=== PATIENT | male | born 1960 | race Asian ===

== ENCOUNTER → 2019-05-31 10:33 | Outpatient (CLI) | payer BC, OTHER, SELFPAY ==
[2019-05-31 11:13] LABS: Add Manual Diff / Slide Review NO; Basophils Absolute Auto 0 /uL (0-100); Basophils Percent Auto 0.4 % (0-2); Eosinophils Absolute Auto 100 /uL (0-450); Eosinophils Percent Auto 1.3 % (2-4); Hematocrit 45.7 % (41-53); Hemoglobin 15.4 g/dL (13.5-17.5); Lymphocytes Absolute Auto 1300 /uL (1100-4500); Lymphocytes Percent Auto 28.6 % (25-40); Mean Corpuscular HGB Conc 33.7 % (30-36); Mean Corpuscular Hemoglobin 32.3 PG (26-34); Mean Corpuscular Volume 95.9 fL (80-100); Monocytes Absolute Auto 400 /uL (0-900); Monocytes Percent Auto 9.4 % (3-14); Neutrophils Absolute Auto 2700 /uL (1500-7000); Neutrophils Percent Auto 60.3 % (50-75); Platelet Count 232 X10^3/uL (150-400); Red Blood Cell Count 4.77 X10^6/uL (4.5-5.9); Red Cell Distribution Width 12.4 % (11.6-14.8); White Blood Cell Count 4.5 X10^3/uL (4.5-11.0)
[2019-05-31 11:25] LABS: Alanine Aminotransferase 45 IU/L (21-72); Albumin 4.7 g/dL (3.5-5.0); Albumin Globulin Ratio 1.5 (1.0-2.8); Alkaline Phosphatase 60 U/L (38-126); Aspartate Aminotransferase 43 IU/L (17-59); Bilirubin Total 1.8 mg/dL (0.2-1.3); Blood Urea Nitrogen 19 mg/dL (9-20); Calcium 9.6 mg/dL (8.4-10.2); Carbon Dioxide 27 mmol/L (22-32); Chloride 100 mmol/L (98-107); Cholesterol 167 mg/dL (140-199); Estimated Glomerular Filt Rate > 60.0 mL/min (>60); Globulin 3.1 g/dL (1.7-4.1); Glucose 100 mg/dL (80-110); HDL Cholesterol 56 mg/dL (40-60); HEMOLYSIS < 15 (0-50); LDL Cholesterol Calculated 96 mg/dL (<100); Potassium 4.6 mmol/L (3.4-5.1); Sodium 139 mmol/L (137-145); Total Protein 7.8 g/dL (6.3-8.2); Triglycerides 76 mg/dL (35-150)
[2019-05-31 11:56] LABS: Prostate Specific Antigen Scrn 1.21 ng/mL (0.1-4.0)
== END ==
PROVIDERS: PCP Hospitalist; Visit Provider Hospitalist
DX: E78.00 Pure hypercholesterolemia, unspecified (principal); M54.9 Dorsalgia, unspecified
CPT/HCPCS: 36415; 80053; 80061; 85025; G0103

== ENCOUNTER 2019-07-24 11:50 | Day surgery (SDC) | payer BC, OTHER, SELFPAY ==
--- NOTE | 2019-07-24 | PATH_ITS ---
[facility] Accession Number: [id number] . 01 Material submitted: . colon - COLON POLYP AT 70 CM . 01 Clinical history: . SCREENING COLONOSCOPY . 02 Diagnosis: Colon, Polyp at 70 cm, Biopsy: Tubular adenoma. MRV 07/25/2019 1005 Local . 02 Electronically signed: . Bree Santana MD, Pathologist NPI- [id number] . 01 Gross description: . COLON POLYP AT 70 CM: Received in formalin is 1 fragment(s) of tao, soft tissue measuring 0.3 x 0.2 x 0.2 cm which is entirely submitted and submitted entirely in 1 cassette(s) /[facility] 07/24/2019 1949 Local . 02 Pathologist provided ICD-10: D12.6 . 02 CPT . 818958 Performed at: 01 [facility] [address] [id number] MD Josh Dodd MD Phone: [phone] Performed at: 02 [facility] [address] [place], [place] [id number] MD Bree Santana MD Phone: [phone]
[2019-07-24 12:08] VITALS: BP 141/88; PULSE 63; RESP 16; TEMP 36.4; O2SAT 99
--- NOTE | 2019-07-24 12:55 | PM.HP.1 ---
History of Present Illness History of Present Illness Date Patient Seen: 07/24/19 Time Patient Seen: 12:56 Chief complaint: [id number] SCREENING COLONOSCOPY Narrative: This is a 59 yo man with history of screening colonoscopy one year ago which was normal. He returns today for his interval screening. He denies rectal bleeding, melena, abdominal pain, constipation or diarrhea. Patient History Medical History Back pain (Chronic ~2009) Chicken pox (Resolved) Hyperlipidemia (Acute) Surgical History Anesthesia (Inactive) Cervical vertebral fusion (Acute ~1983) H/O arthroscopy of knee (Acute) H/O arthroscopy of shoulder (Acute ~2016) Family History (Updated 07/10/19 @ 20:47 by Misa Nair) Father Diabetes mellitus Mother Hypertension Hyperlipidemia Sister Diabetes mellitus Social History household members: spouse Smoking Status: Never smoker Family & Social History Family History Father Diabetes mellitus Mother Hypertension Hyperlipidemia Sister Diabetes mellitus Social History: household members spouse Tobacco & Substance use: Smoking Status Never smoker Meds Home Medications and Allergies Home Medications Medication Instructions Recorded Confirmed Type scopolamine base [Transderm-Scop] 1 patch TD Q72H #10 patch 10/31/17 05/31/19 Rx simvastatin 40 mg tablet 40 mg PO HS #30 tab 06/01/19 07/24/19 Rx Allergies Allergy/AdvReac Type Severity Reaction Status Date / Time No Known Drug Allergies Allergy Verified 05/31/19 09:54 Review of Systems Review of Systems ROS Unobtainable: All systems reviewed & are unremarkable except as noted in HPI and below Exam Vital Signs (past 8 hours): - 07/24/19 12:08 Temperature 97.5 F L Pulse Rate 63 Respiratory Rate 16 Blood Pressure 141/88 H Pulse Oximetry 99 Oxygen Delivery Method Room Air Narrative Exam Narrative: alert, oriented, comfortable normal respirations NSR abdomen soft, nontender, nondistended no LE edema Assessment & Plan Assessment and plan (1) Colon cancer screening: Current visit: Yes Status: Acute Assessment & Plan narrative: Risks and benefits of screening colonoscopy discussed. Risks of bleeding, infection, perforation, need for additional procedures were discussed. The patient desires to proceed. Plan: Proceed with screening colonoscopy Time Spent With Patient Time with patient: 15-24 minutes
--- NOTE | 2019-07-24 13:34 | PM.OP.ENDO ---
Operative Date/Time/Diagnoses Date of procedure: 07/24/19 Time of procedure: 13:35 Pre-op diagnosis: Average risk for colon cancer Post-op diagnosis: other (Polyp found and removed at 70cm) Procedure & Clinicians Study performed: Colonoscopy with cold forecps polypectomy Same procedure as scheduled: Yes (with polypectomy) Indications: Ten year colon cancer screening Surgeon: Farida Yan Procedure Notes SCOAP/Timeout: Performed Procedure in detail: The patient is brought to the room the patient placed in left lateral decubitus position and time-out was performed. Sedation was begun with 4 mg of Versed and 100 mg of fentanyl. Rectal exam was performed which was normal. The scope was then introduced into the anal opening and progressed to the cecum in the usual fashion. The cecum was identified by the ileocecal valve and cecal try fold. The scope was then withdrawn in a rotary fashion with careful examination of all folds of the colonic mucosa. A 2 mm polyp was found as a mucosal fold at 70 cm. This was removed entirely with cold forceps. Hemostasis was good. The polyp was sent for pathology. The remaining withdrawal of the colonoscope was completed viewing all colonic mucosal folds without any further abnormalities noted. Retroflex was done in the rectum and no significant hemorrhoid disease was appreciated. The colonoscope was then withdrawn from the rectum and the patient was transferred to recovery in stable condition. Scope withdrawal time: 8 minutes Sedation minutes: 20 Findings: polyp Specimen(s): other (2 mm polyp removed by cold forceps at 70 cm) Complications: none Post-procedure Recommendations: Colonscopy in 10 years (Unless pathology is neoplastic, then 5 years) Follow up: as needed Disposition: PACU
[2019-07-24] MEDS: MIDAZOLAM 5 MG/5 ML VIAL IV (13:36)
[2019-07-24] MEDS: fentaNYL 250 MCG/5 ML INJ IV (13:36)
[2019-07-24] MEDS: ONDANSETRON 4 MG/2 ML INJ IV (13:37)
[2019-07-24 13:41] VITALS: BP 109/68; PULSE 56; RESP 11; TEMP 36.4; O2SAT 97
[2019-07-24 13:46] VITALS: BP 125/79; PULSE 58; RESP 18; O2SAT 97
[2019-07-24 13:51] VITALS: BP 123/70; PULSE 55; RESP 16; O2SAT 96
[2019-07-24 13:56] VITALS: BP 126/78; PULSE 53; RESP 18; O2SAT 96
--- NOTE | 2019-07-24 14:12 | SUR.PHASEI ---
1341 To pacu awake and talking, oriented. HOB elevated, juice given. 1356 VSS, preparing to transfer to [facility].
--- NOTE | 2019-07-24 14:14 | SUR.PHASEII ---
1358 late entry To [facility], to bedside. A&O, no pain, belly soft. Report to Rossi Lara RN
== END 2019-07-24 14:20 | disposition home or self-care (01) ==
PROVIDERS: Family Provider Hospitalist; PCP Hospitalist; Visit Provider Surgery
PROC: 0DJD8ZZ Inspection of Lower Intestinal Tract, Via Natural or Artificial Opening Endoscopic (ICD-10-PCS; CPT 45378; principal; 2019-07-24 13:00)
DX: Z12.11 Encounter for screening for malignant neoplasm of colon (principal)
CPT/HCPCS: 45380; 99152; J2250; J2405; J3010

== ENCOUNTER → 2020-06-11 10:19 | Outpatient (CLI) | payer BC, OTHER, SELFPAY ==
[2020-06-11 11:26] LABS: Add Manual Diff / Slide Review NO; BUN Creatinine Ratio 15.4 (6-22); Basophils Absolute Auto 0 /uL (0-100); Basophils Percent Auto 0.5 % (0-2); Blood Urea Nitrogen 16 mg/dL (9-20); Calcium 9.3 mg/dL (8.4-10.2); Carbon Dioxide 30 mmol/L (22-32); Chloride 104 mmol/L (98-107); Cholesterol 138 mg/dL (140-199); Eosinophils Absolute Auto 100 /uL (0-450); Eosinophils Percent Auto 1.3 % (2-4); Estimated Glomerular Filt Rate > 60.0 mL/min (>60); Glucose 103 mg/dL (80-110); HDL Cholesterol 46 mg/dL (40-60); HEMOLYSIS < 15 (0-50); Hematocrit 43.5 % (41-53); Hemoglobin 14.7 g/dL (13.5-17.5); LDL Cholesterol Calculated 75 mg/dL (<100); Lymphocytes Absolute Auto 1500 /uL (1100-4500); Mean Corpuscular HGB Conc 33.8 % (30-36); Mean Corpuscular Hemoglobin 32.5 PG (26-34); Mean Corpuscular Volume 96.1 fL (80-100); Monocytes Absolute Auto 400 /uL (0-900); Monocytes Percent Auto 6.7 % (3-14); Neutrophils Absolute Auto 3500 /uL (1500-7000); Neutrophils Percent Auto 64.5 % (50-75); Platelet Count 217 X10^3/uL (150-400); Potassium 4.6 mmol/L (3.4-5.1); Red Blood Cell Count 4.53 X10^6/uL (4.5-5.9); Red Cell Distribution Width 12.8 % (11.6-14.8); Sodium 138 mmol/L (137-145); Triglycerides 83 mg/dL (35-150); White Blood Cell Count 5.4 X10^3/uL (4.5-11.0)
[2020-06-11 11:53] LABS: Prostate Specific Antigen Scrn 1.56 ng/mL (0.1-4.0)
[2020-06-11 12:12] LABS: Vitamin D 25 Hydroxy (D3) 27.5 ng/mL (30.0-100.0)
== END ==
PROVIDERS: PCP Family Medicine; Referring Provider Family Medicine; Visit Provider Family Medicine
DX: E55.9 Vitamin D deficiency, unspecified (principal); E78.5 Hyperlipidemia, unspecified; Z12.5 Encounter for screening for malignant neoplasm of prostate
CPT/HCPCS: 36415; 80048; 80061; 82306; 85025; G0103

== ENCOUNTER → 2021-09-22 09:37 | Outpatient (CLI) | payer BC, OTHER, SELFPAY ==
[2021-09-22 10:35] LABS: Add Manual Diff / Slide Review NO; Basophils Absolute Auto 0 /uL (0-100); Basophils Percent Auto 0.8 % (0-2); Eosinophils Absolute Auto 100 /uL (0-450); Eosinophils Percent Auto 1.3 % (2-4); Hematocrit 45.4 % (41-53); Hemoglobin 15.4 g/dL (13.5-17.5); Lymphocytes Absolute Auto 1300 /uL (1100-4500); Lymphocytes Percent Auto 28.4 % (25-40); Mean Corpuscular Hemoglobin 32.2 PG (26-34); Monocytes Absolute Auto 300 /uL (0-900); Neutrophils Absolute Auto 2900 /uL (1500-7000); Neutrophils Percent Auto 62.5 % (50-75); Platelet Count 216 X10^3/uL (150-400); Red Blood Cell Count 4.79 X10^6/uL (4.5-5.9); Red Cell Distribution Width 12.8 % (11.6-14.8); White Blood Cell Count 4.7 X10^3/uL (4.5-11.0)
[2021-09-22 10:52] LABS: Blood Urea Nitrogen 16 mg/dL (9-20); Calcium 9.6 mg/dL (8.4-10.2); Carbon Dioxide 30 mmol/L (22-32); Chloride 101 mmol/L (98-107); Cholesterol 177 mg/dL (140-199); Estimated Glomerular Filt Rate > 60.0 mL/min (>60); Glucose 109 mg/dL (80-110); HDL Cholesterol 57 mg/dL (40-60); HEMOLYSIS < 15 (0-50); LDL Cholesterol Calculated 97 mg/dL (<100); Potassium 4.5 mmol/L (3.4-5.1); Sodium 138 mmol/L (137-145); Triglycerides 116 mg/dL (35-150)
[2021-09-22 10:57] LABS: Vitamin D 25 Hydroxy (D3) 22.6 ng/mL (30.0-100.0)
[2021-09-22 11:11] LABS: Prostate Specific Antigen Scrn 2.15 ng/mL (0.1-4.0)
== END ==
PROVIDERS: PCP Family Medicine; Referring Provider Family Medicine; Visit Provider Family Medicine
DX: E55.9 Vitamin D deficiency, unspecified (principal); E78.2 Mixed hyperlipidemia; Z12.5 Encounter for screening for malignant neoplasm of prostate
CPT/HCPCS: 36415; 80048; 80061; 82306; 85025; G0103

== ENCOUNTER → 2023-03-11 07:43 | Outpatient (CLI) | payer BC, OTHER, SELFPAY ==
[2023-03-11 08:26] LABS: Add Manual Diff / Slide Review NO; Basophils Absolute Auto 0 /uL (0-100); Basophils Percent Auto 0.6 % (0-2); Eosinophils Absolute Auto 100 /uL (0-450); Eosinophils Percent Auto 2.2 % (2-4); Hematocrit 42.2 % (41-53); Hemoglobin 14.6 g/dL (13.5-17.5); Lymphocytes Absolute Auto 1300 /uL (1100-4500); Mean Corpuscular HGB Conc 34.5 % (30-36); Mean Corpuscular Hemoglobin 32.5 PG (26-34); Mean Corpuscular Volume 94.1 fL (80-100); Monocytes Absolute Auto 300 /uL (0-900); Neutrophils Absolute Auto 3100 /uL (1500-7000); Neutrophils Percent Auto 64.2 % (50-75); Platelet Count 228 X10^3/uL (150-400); Red Blood Cell Count 4.49 X10^6/uL (4.5-5.9); Red Cell Distribution Width 12.5 % (11.6-14.8); White Blood Cell Count 4.9 X10^3/uL (4.5-11.0)
[2023-03-11 08:48] LABS: Alanine Aminotransferase 45 IU/L (<50); Albumin 4.2 g/dL (3.5-5.0); Albumin Globulin Ratio 1.5 (1.0-2.8); Alkaline Phosphatase 67 U/L (38-126); Aspartate Aminotransferase 35 IU/L (17-59); BUN Creatinine Ratio 18.1 (6-22); Blood Urea Nitrogen 17 mg/dL (9-20); Calcium 8.8 mg/dL (8.4-10.2); Carbon Dioxide 28 mmol/L (22-32); Chloride 103 mmol/L (98-107); Cholesterol 159 mg/dL (140-199); Estimated Glomerular Filt Rate > 60 mL/min (>60); Globulin 2.8 g/dL (1.7-4.1); Glucose 113 mg/dL (80-110); HDL Cholesterol 52 mg/dL (40-60); HEMOLYSIS < 15 (0-50); LDL Cholesterol Calculated 90 mg/dL (<100); Potassium 4.3 mmol/L (3.4-5.1); Sodium 137 mmol/L (137-145); Triglycerides 83 mg/dL (35-150)
[2023-03-11 08:59] LABS: Vitamin D 25 Hydroxy (D3) 29.5 ng/mL (30.0-100.0)
== END ==
PROVIDERS: PCP Family Medicine; Referring Provider Family Medicine; Visit Provider Family Medicine
DX: E55.9 Vitamin D deficiency, unspecified (principal); E78.2 Mixed hyperlipidemia
CPT/HCPCS: 36415; 80053; 80061; 82306; 85025

== ENCOUNTER → 2023-03-16 10:46 | Outpatient (CLI) | payer BC, OTHER, SELFPAY ==
--- NOTE | 2023-03-16 10:47 | DI.RAD.S_ITS ---
PROCEDURE: XR CERVICAL SPINE 2V OR 3V INDICATIONS: pain TECHNIQUE: 3 view(s) of the cervical spine were acquired. COMPARISON: None. FINDINGS: Bones: [id number]-[id number] degenerative changes with disc space height loss, arthropathy, and osteophytes. Vertebral body heights are well maintained. No traumatic subluxation. There is straightening of normal cervical lordosis. Posterior fusion wires are seen at C1-C2. Soft tissues: No pathologic prevertebral soft tissue swelling. IMPRESSION: No acute radiographic abnormality. [id number] degenerative changes. If there is high concern for further derangement, consider MRI evaluation. Dictated by: Nick Callaway M.D. on 03/16/2023 at 14:54 Approved by: Nick Callaway M.D. on 03/16/2023 at 14:55
== END ==
PROVIDERS: PCP Family Medicine; Referring Provider Family Medicine; Visit Provider Family Medicine
DX: M54.2 Cervicalgia (principal)
CPT/HCPCS: 72040

== ENCOUNTER 2023-09-18 15:14 | Emergency (ER) | payer BC, OTHER, SELFPAY ==
[2023-09-18 15:32] VITALS: BP 134/78; PULSE 72; RESP 22; TEMP 36.8; O2SAT 97; BMI 30.2
[2023-09-18] MEDS: TET,DIPH,PERTUSS(ACELL),VAC/PF 0.5 ML SYRINGE IM (16:05)
[2023-09-18] MEDS: LIDOCAINE 1% W/EPI 1 ML SUBCUT (16:06)
--- NOTE | 2023-09-18 19:33 | ED.WOUNDLAC ---
HPI - Wound/Laceration <Gloria Savage PA-C - Last Filed: 09/18/23 19:39> General Chief Complaint: Wound/Laceration Stated Complaint: lt index finger lac Time Seen by Provider: 09/18/23 15:51 Source: patient Mode of arrival: Ambulatory History of Present Illness HPI narrative: 63-year-old male with no significant health history, presents for evaluation of laceration to the left index finger. He was cutting the head off of a fish few hours ago when the knife slipped and sliced into the the soft tissue of his lateral index finger between the MCP and the PIP. It has bled significantly and continues to ooze blood but not spurt. He denies any numbness tingling or loss of strength or sensation in that finger. Also notes a mild abrasion to the dorsal thumb as part of the knife injury. He has no other complaints. Related Data Previous Rx's Medication Instructions Recorded scopolamine base 1 mg over 3 days 1 patch topical Q72H #10 patches 05/20/23 transdermal patch (Transderm-Scop) simvastatin 40 mg tablet 40 mg PO DAILY #90 tabs 05/30/23 Allergies Allergy/AdvReac Type Severity Reaction Status Date / Time No Known Drug Allergies Allergy Verified 05/20/23 09:22 Review of Systems <Gloria Savage PA-C - Last Filed: 09/18/23 19:39> Review of Systems ROS Unobtainable: Unobtainable due to mental status/LOC Patient History <Gloria Savage PA-C - Last Filed: 09/18/23 19:39> Medical History History of motion sickness Upper extremity somatic dysfunction Finger pain, right Acute neck pain Plantar fasciitis of left foot Chronic low back pain without sciatica Cutaneous skin tags Bilateral leg cramps Chronic right hip pain Vitamin D deficiency Colon cancer screening Chicken pox Hyperlipidemia Back pain (~2009) Surgical History (Updated 03/16/23 @ 10:20 by Suresh Fishman DO) S/P cervical spinal fusion Anesthesia H/O arthroscopy of shoulder (~2016) H/O arthroscopy of knee Cervical vertebral fusion (~1983) Family History (Updated 04/03/20 @ 09:15 by Suresh Fishman DO) Father Diabetes mellitus Mother Hypertension Hyperlipidemia Sister Diabetes mellitus Social History household members: spouse Smoking Status: Never smoker Smoking Status: Never smoker alcohol intake frequency: holidays/special occasions only Substance Use Type: does not use Exam <Gloria Savage PA-C - Last Filed: 09/18/23 19:39> Initial Vital Signs Initial Vital Signs: Vital Signs Temperature 98.2 F 09/18/23 15:32 Pulse Rate 72 09/18/23 15:32 Respiratory Rate 22 09/18/23 15:32 Blood Pressure 134/78 09/18/23 15:32 Pulse Oximetry 97 09/18/23 15:32 Oxygen Delivery Method Room Air 09/18/23 15:32 <Cele Casas MD - Last Filed: 09/20/23 19:44> Initial Vital Signs Initial Vital Signs: Vital Signs Temperature 98.2 F 09/18/23 15:32 Pulse Rate 72 09/18/23 15:32 Respiratory Rate 22 09/18/23 15:32 Blood Pressure 134/78 09/18/23 15:32 Pulse Oximetry 97 09/18/23 15:32 Oxygen Delivery Method Room Air 09/18/23 15:32 Procedures <Gloria Savage PA-C - Last Filed: 09/18/23 19:39> Laceration Repair Laceration 1: Site: hand (L index finger) Side (If applicable): left Size (cm): 2 Description: linear Depth: simple, single layer Local Anesthetic: lidocaine 1% and with epi Amount of anesthesia used (mL): 3 Pre-repair: wound explored and cleansed with chlorhexadine Skin layer closed with: nylon Skin layer suture size: 5-0 Number of sutures: 3 Technique: simple, interrupted Course <Gloria Savage PA-C - Last Filed: 09/18/23 19:39> Orders Ordered: Discontinued Medications Diphtheria/Tetanus/Acell Pertussis (Tet,Diph,Pertuss(Acell),Vac/Pf 0.5 Ml Syringe) 0.5 ml IM .ONCE ONE Stop: 09/18/23 16:01 Last Admin: 09/18/23 16:05 Dose: 0.5 ml Documented By: MARIANA Lidocaine/Epinephrine (Lidocaine 1% W/Epi) 1 ml SUBCUT NOW ONE Stop: 09/18/23 15:40 Last Admin: 09/18/23 16:06 Dose: 1 ml Documented By: MARIANA Vital Signs Vital signs: Vital Signs - 8 hr 09/18/23 15:32 Temperature 98.2 F Pulse Rate 72 Respiratory Rate 22 Blood Pressure 134/78 Pulse Oximetry 97 Oxygen Delivery Method Room Air <Cele Casas MD - Last Filed: 09/20/23 19:44> Orders Ordered: Discontinued Medications Diphtheria/Tetanus/Acell Pertussis (Tet,Diph,Pertuss(Acell),Vac/Pf 0.5 Ml Syringe) 0.5 ml IM .ONCE ONE Stop: 09/18/23 16:01 Last Admin: 09/18/23 16:05 Dose: 0.5 ml Documented By: ES Lidocaine/Epinephrine (Lidocaine 1% W/Epi) 1 ml SUBCUT NOW ONE Stop: 09/18/23 15:40 Last Admin: 09/18/23 16:06 Dose: 1 ml Documented By: MARIANA Vital Signs Vital signs: Vital Signs - 8 hr 09/18/23 15:32 Temperature 98.2 F Pulse Rate 72 Respiratory Rate 22 Blood Pressure 134/78 Pulse Oximetry 97 Oxygen Delivery Method Room Air MDM - Wound/Laceration <Gloria Savage PA-C - Last Filed: 09/18/23 19:39> MDM Narrative Medical decision making narrative: Simple shallow laceration to the left index finger in the soft tissue with exploration negative for deeper muscle or tendon involvement. This patient was discussed with . Discharge Plan Departure Patient Disposition: Home Clinical Impression: Laceration of finger of left hand Qualifiers: Encounter type: initial encounter Instructions: How to Care for a Laceration After Repair, DI for Laceration Repair Activity Restrictions/Additional Instructions: Your laceration was superficial into the pad of your finger which was a good place to cut yourself. Keep that finger dry for at least the next 3 days. Your tetanus was updated today. Sutures out in 7-10 days either with your doctor or at the walk-in clinic here. Keep the finger elevated to reduce pain. Keep that splint on for at least 3 days and then as needed for comfort. He do not want you to bend the finger too much which might slow healing process. You can take Tylenol for pain up to 3 g per day. Return for any signs of infections such as drainage from the wound, increased swelling and pain, or fever. Good luck with the fishing and it was a pleasure to take care of you. Prescriptions: No Action simvastatin 40 mg tablet 40 mg PO DAILY MDD 40 mg Qty: 90 2RF Rx Instructions: Take one tablet by mouth daily at bedtime scopolamine base [Transderm-Scop] 1 mg over 3 days patch 3 day 1 patch topical Q72H Qty: 10 3RF Referrals: Suresh Fishman DO [Primary Care Provider] - Stand Alone Forms: Patient Portal/API ED Sign-out <Cele Casas MD - Last Filed: 09/20/23 19:44> Cosign ED Attending Cosignature Attestation: I was immediately available in the department for consultation throughout this patient's visit. Cele Casas MD
== END 2023-09-18 16:36 | disposition home or self-care (01) ==
PROVIDERS: Emergency Provider Physician Assistant; PCP Family Medicine
DX: S61.211A Laceration without foreign body of left index finger without damage to nail, initial encounter (principal); W26.0XXA Contact with knife, initial encounter; Z23 Encounter for immunization
CPT/HCPCS: 12001; 90471; 99283; 90715

== ENCOUNTER → 2024-05-18 09:07 | Outpatient (CLI) | payer MEDICARE, BC, OTHER, SELFPAY ==
[2024-05-18 10:16] LABS: Add Manual Diff / Slide Review NO; Basophils Absolute Auto 0 /uL (0-100); Basophils Percent Auto 0.6 % (0-2); Eosinophils Absolute Auto 100 /uL (0-450); Eosinophils Percent Auto 1.9 % (2-4); Hematocrit 43.7 % (41-53); Hemoglobin 14.9 g/dL (13.5-17.5); Lymphocytes Absolute Auto 1300 /uL (1100-4500); Lymphocytes Percent Auto 25.4 % (25-40); Mean Corpuscular HGB Conc 34.1 % (30-36); Mean Corpuscular Hemoglobin 32.7 PG (26-34); Mean Corpuscular Volume 95.9 fL (80-100); Monocytes Absolute Auto 400 /uL (0-900); Monocytes Percent Auto 7.3 % (3-14); Neutrophils Absolute Auto 3300 /uL (1500-7000); Neutrophils Percent Auto 64.8 % (50-75); Platelet Count 233 X10^3/uL (150-400); Red Blood Cell Count 4.56 X10^6/uL (4.5-5.9); Red Cell Distribution Width 12.5 % (11.6-14.8); White Blood Cell Count 5.1 X10^3/uL (4.5-11.0)
[2024-05-18 10:53] LABS: Vitamin D 25 Hydroxy (D3) 36.4 ng/mL (30.0-100.0)
[2024-05-18 12:12] LABS: Alanine Aminotransferase 35 IU/L (<50); Albumin 4.4 g/dL (3.5-5.0); Albumin Globulin Ratio 1.6 (1.0-2.8); Alkaline Phosphatase 64 U/L (38-126); Aspartate Aminotransferase 38 IU/L (17-59); BUN Creatinine Ratio 17.3 (6-22); Bilirubin Total 1.2 mg/dL (0.2-1.3); Blood Urea Nitrogen 17 mg/dL (9-20); Calcium 8.8 mg/dL (8.4-10.2); Carbon Dioxide 24 mmol/L (22-32); Chloride 105 mmol/L (98-107); Cholesterol 164 mg/dL (140-199); Estimated Glomerular Filt Rate > 60 mL/min (>60); Globulin 2.7 g/dL (1.7-4.1); Glucose 115 mg/dL (80-110); HDL Cholesterol 54 mg/dL (40-60); HEMOLYSIS < 15 (0-50); LDL Cholesterol Calculated 95 mg/dL (<100); Potassium 4.7 mmol/L (3.4-5.1); Sodium 136 mmol/L (137-145); Total Protein 7.1 g/dL (6.3-8.2); Triglycerides 77 mg/dL (35-150)
[2024-05-18 12:45] LABS: Prostate Specific Antigen 1.93 ng/mL (0.10-4.00)
== END ==
PROVIDERS: PCP Family Medicine; Referring Provider Family Medicine; Visit Provider Family Medicine
DX: Z00.00 Encounter for general adult medical examination without abnormal findings (principal); E55.9 Vitamin D deficiency, unspecified; E78.2 Mixed hyperlipidemia; Z12.5 Encounter for screening for malignant neoplasm of prostate
CPT/HCPCS: 36415; 80053; 80061; 82306; 84153; 85025; G0103

== ENCOUNTER → 2024-06-05 09:03 | Outpatient (CLI) | payer MEDICARE, BC, OTHER, SELFPAY ==
[2024-06-05 10:45] LABS: Erythrocyte Sedimentation Rate 16 MM/HR (0-15)
[2024-06-05 11:08] LABS: C-Reactive Protein Quant < 0.5 mg/dL (<1.0)
[2024-06-06 06:06] LABS: Complement C3 125 mg/dL (82-167)
[2024-06-06 16:12] LABS: DNA (DS) Antibody 1 IU/mL (0-9)
== END ==
PROVIDERS: PCP Family Medicine; Referring Provider Family Medicine; Visit Provider Family Medicine
DX: M19.049 Primary osteoarthritis, unspecified hand (principal)
CPT/HCPCS: 36415; 83520; 85651; 86038; 86140; 86147; 86148; 86160; 86225

== ENCOUNTER → 2025-09-24 07:31 | Outpatient (CLI) | payer MEDICARE, BC, OTHER, SELFPAY ==
[2025-09-24 08:33] LABS: Add Manual Diff / Slide Review NO; Hematocrit 43.8 % (41-53); Hemoglobin 14.9 g/dL (13.5-17.5); Lymphocytes Absolute Auto 1400 /uL (1100-4500); Mean Corpuscular HGB Conc 33.9 % (30-36); Mean Corpuscular Hemoglobin 32.4 PG (26-34); Mean Corpuscular Volume 95.5 fL (80-100); Platelet Count 227 X10^3/uL (150-400)
[2025-09-24 08:49] LABS: Alanine Aminotransferase 47 IU/L (<50); Albumin 4.4 g/dL (3.5-5.0); Albumin Globulin Ratio 1.6 (1.0-2.8); Alkaline Phosphatase 69 U/L (38-126); Blood Urea Nitrogen 17 mg/dL (9-20); Calcium 8.8 mg/dL (8.4-10.2); Carbon Dioxide 25 mmol/L (22-32); Chloride 105 mmol/L (98-107); Cholesterol 174 mg/dL (140-199); Estimated Glomerular Filt Rate > 60 mL/min (>60); Globulin 2.8 g/dL (1.7-4.1); Glucose 123 mg/dL (70-99); HDL Cholesterol 56 mg/dL (40-60); HEMOLYSIS < 15 (0-50); Potassium 4.3 mmol/L (3.4-5.1); Sodium 138 mmol/L (137-145); Total Protein 7.2 g/dL (6.3-8.2); Triglycerides 126 mg/dL (35-150)
== END ==
PROVIDERS: PCP Family Medicine; Referring Provider Family Medicine; Visit Provider Family Medicine
DX: Z12.5 Encounter for screening for malignant neoplasm of prostate (principal); R73.01 Impaired fasting glucose; E78.2 Mixed hyperlipidemia
CPT/HCPCS: 36415; 80053; 80061; 85025; G0103